=== PATIENT | female | born 1950 | race Two or more races ===

== ENCOUNTER 2017-06-21 08:00 | Inpatient (IN) | payer OTHER ==
[~2017-06-21] VITALS: Ht 157.5 cm; Wt 54.4 kg
[~2017-06-21 08:00] MED LIST: METHOTREXATE; MILLIPRED5 MG PO; PERCOCET 5/3251 TAB PO; PERSANTINE25 MG PO; RELAGESIC 5001 EACH; TYLENOL EXTRA500 MG PO; XARELTO10 MG PO
[2017-06-21] MEDS ORDERED: [UNRECOGNIZED DRUG - OTHER] PO (13:57)
[2017-06-29] MEDS ORDERED: PERCOCET 5-3251 EACH PO (17:37)
[2017-06-29] MEDS ORDERED: XARELTO10 MG PO (17:37)
== END 2017-06-29 18:18 | DRG 470 ==
LOC: EDSTATUS 08:00 → ADM 08:00 → O/R 06-27 06:23 → SURH 06-27 08:00 → OB/GYN 06-27 17:05 → O/R 06-27 17:06 → SURH 06-27 17:06
PROVIDERS: Orthopaedic Surgery
PROC: 0SR90JZ Replacement of Right Hip Joint with Synthetic Substitute, Open Approach (ICD-10-PCS; principal; 2017-06-27 12:30)
DX: M16.11 Unilateral primary osteoarthritis, right hip (principal); D62 Acute posthemorrhagic anemia; M81.0 Age-related osteoporosis without current pathological fracture; M70.61 Trochanteric bursitis, right hip; I10 Essential (primary) hypertension